=== PATIENT | male | born 1965 | race Native Hawaiian/Other Pacific Islander ===

== ENCOUNTER → 2020-06-29 11:07 | Outpatient (CLI) | payer OTHER, MEDICAID, SELFPAY ==
[2020-06-29 12:23] LABS: COVID19 -Nasal RAPID Negative (Negative)
== END ==
PROVIDERS: Visit Provider Physician Assistant
DX: Z11.59 Encounter for screening for other viral diseases (principal)
CPT/HCPCS: 87635

== ENCOUNTER → 2020-07-01 13:37 | Outpatient (CLI) | payer OTHER, MEDICAID, SELFPAY ==
--- NOTE | 2020-07-01 13:42 | DI.ECHO.S_ITS ---
[facility]---------+ [facility] +---------+ : : [address] : : : : [id number] : : : : Phone: [phone]+ Echocardiogram Report + + :Name: JASMIN HUTTON Study Date: 07/01/2020 Height: 68 in : :[facility] Weight: 242 lb : : Gender: Male BSA: 2.2 m2 : :: 1965 Age: 54 yrs BP: 147/84 mmHg: :Reason For Study: Tachycardia : : Performed By: Josseline Herrera : :Referring: BRODIE RICCI : + + Interpretation Summary 1) Normal left ventricular size and thickness with moderately reduced systolic function (EF 35-40%). 2) Normal right ventricular size and function. 3) No significant valvular abnormalities. 4) No prior Echo available for comparison. Procedure: A two-dimensional transthoracic echocardiogram with color flow and Doppler was performed. The study quality was technically adequate. There is no prior echocardiogram noted for this patient. The patient was in normal sinus rhythm during the exam. Left Ventricle: The left ventricle is normal in size and wall thickness. The ejection fraction is estimated to be 35-40%. Left ventricular systolic function is moderately reduced. Right Ventricle: The right ventricle is normal in size and function. Atria: The left atrial size is normal. Right atrial size is normal. There is no Doppler evidence for an interatrial shunt. Mitral Valve: The mitral valve leaflets are mildly calcified. There is mild mitral annular calcification. There is trace mitral regurgitation. Aortic Valve: The aortic valve is trileaflet. The aortic valve opens well. There is no aortic valve stenosis. No aortic regurgitation is present. Tricuspid Valve: The tricuspid valve is normal in structure and function. There is a trace or physiologic amount of tricuspid regurgitation. Pulmonary artery pressures cannot be estimated because of the lack of a measurable TR jet velocity. Pulmonic Valve: The pulmonic valve leaflets are thin and pliable; valve motion is normal. Great Vessels: The aortic root is normal size. The ascending aorta is normal in size. The pulmonary is not well visualized. The IVC is of normal diameter and collapses greater than 50% with a sniff. This suggests a low right atrial pressure of 3 mm Hg. Pericardium/ Pleura There is no pericardial effusion. There is an anterior echo-free space consistent with a fat pad. MMode/2D Measurements & Calculations LVIDd: 5.4 cm LVOT diam: 2.4 cm LVIDs: 3.8 cm Ao root diam: 3.1 cm FS: 30.6 % asc Aorta Diam: 3.2 cm EPSS: 1.1 cm Ao Arch Diam (Prox Trans): 3.0 cm IVSd: 0.86 cm LVPWd: 0.95 cm LV crane. diameter/BSA (cm/m^2): 2.4 LV sys. diameter/BSA (cm/m^2): 1.7 LA A2 area: 17.2 cm2 RA long axis: 4.6 cm LA A4 area: 21.6 cm2 RA area: 12.1 cm2 LA length (vol): 6.3 cm RA vol: 27.3 ml LA vol: 49.8 ml RA : 12.3 ml/m2 LA vol index: 22.5 ml/m2 IVC diam: 1.9 cm RVD1 (basal): 3.0 cm TAPSE: 2.1 cm Doppler Measurements & Calculations Ao V2 max: 148.8 cm/sec LVOT Max Gualberto: 80.2 cm/sec Ao V2 mean: 110.8 cm/sec LV V1 max P.6 mmHg Ao max P.9 mmHg LV V1 VTI: 14.9 cm Ao mean P.3 mmHg JUANI(I,D): 2.3 cm2 Ao V2 VTI: 28.9 cm JUANI(V,D): 2.4 cm2 sev ratio: 0.52 JUANI indexed to BSA (cm^2/m^2): 1.0 MV E max gualberto: 97.4 cm/sec PA V2 max: 111.7 cm/sec MV A max gualberto: 108.3 cm/sec PA V2 mean: 73.0 cm/sec MV E/A: 0.90 PA mean P.4 mmHg Med Peak E' Gualberto: 9.5 cm/sec PA Accel Time: 0.04 sec E/E' med: 10.3 Lat Peak E' Gualberto: 10.5 cm/sec E/E' lat: 9.2 E/e' average: 9.8 MV dec time: 0.20 sec SV(LVOT): 66.4 ml Reading Physician:05:08 PM
--- NOTE | 2020-07-01 19:40 | DI.NM.S_ITS ---
DATE OF SERVICE: 07/01/2020 PROCEDURE: Exercise stress test. INDICATIONS: Palpitation with underlying diabetes mellitus, hypertension and hyperlipidemia. CARDIAC STRESS: The patient underwent exercise stress test under the supervision of an attending staff. He walked on [place] protocol for 7 minutes 53 seconds and achieved 111 percent of target heart rate with normal blood pressure response. Baseline rhythm was sinus with sinus tachycardia with a heart rate of 207 beats per minute. Peak heart rate was up to 182 beats per minute. There was enhanced chronotropic response. The patient achieved 10.1 METs of workload and functional aerobic impairment positive 15 percent. No anginal symptoms. Thornton fatigue. During exercise, there were no convincing ischemic changes. There were no new significant arrhythmias, other than sinus tachycardia. CONCLUSION: Exercise stress test is negative for inducible ischemia. Baseline sinus tachycardia with enhanced chronotropic response. No obvious ischemic EKG changes. No new significant arrhythmias other than sinus tachycardia. Diminished exercise tolerance. Functional aerobic impairment positive 15 percent. Austen Pena - NIRAV/humberto/hannah doc#: [id number]/job#: [id number] dd: 07/01/2020 17:34:00 dt: 07/01/2020 18:40:00 DICTATING MD/COPIES TO: Courtney Plascencia MD COPIES MNE: NATALIE;
== END ==
PROVIDERS: Referring Provider Internal Medicine Cardiovascular Disease; Visit Provider Internal Medicine Cardiovascular Disease
DX: R00.0 Tachycardia, unspecified (principal); R00.2 Palpitations; E11.9 Type 2 diabetes mellitus without complications; I10 Essential (primary) hypertension; E78.5 Hyperlipidemia, unspecified
CPT/HCPCS: 93017; 93306

== ENCOUNTER → 2024-04-08 13:25 | Outpatient (CLI) | payer OTHER, MEDICAID, SELFPAY ==
--- NOTE | 2024-04-08 13:26 | DI.NM.S_ITS ---
PROCEDURE: NM EBONY PERF SPECT REST & STR Rest and exercise myocardial perfusion SPECT with gated imaging and ejection fraction RADIOPHARMACEUTICAL: 27.2 mCi Tc-99m sestamibi IV at rest and 25.0 mCi Tc-99m sestamibi IV at peak exercise. A [id number] was performed. INDICATIONS: SINUS TACHYCARDIA / FATIGUE TECHNIQUE: Radiopharmaceutical was injected at peak stress test, and also at rest. SPECT images were obtained. SPECT myocardial perfusion images were displayed in short axis, horizontal long axis, and vertical long axis views. Gated images were reviewed using [employer] software. COMPARISON: None. CARDIAC STRESS: A standard [place] treadmill exercise tolerance test was performed by the patient under the supervision of an attending staff. The patient exercised for 6 minutes and 01 seconds; 7.0 METS; functional aerobic impairment (GADIEL) is +23%. Hemodynamic data: There is normal blood pressure and heart rate response to exercise stress. Patient achieved 116% of maximum predicted heart rate at peak exercise. Maximum blood pressure 200/90. Symptoms: Patient denied chest pain during exercise however was observed to have severe shortness of breath. EKG: Rest ECG sinus rhythm. Exercise ECG sinus tachycardia, no ST segment changes or arrhythmia. FINDINGS: Raw data: There is good myocardial labeling by radiotracer. No significant motion artifacts. Left ventricle function: Gated images demonstrate normal left ventricle wall thickening. No segmental wall motion abnormality. No transient ischemic dilation; TID is 1.24 (normal less than 1.3). The left ventricle resting end-diastolic volume is 123 mL. Left ventricle stress ejection fraction is 53%; normal values are above 45%. Myocardial perfusion: There is a small size, mild intensity partially reversible apical lateral wall defect. IMPRESSION: Abnormal study. The small size, mild intensity partially reversible apical lateral wall defect could suggest prior small infarct with melanie-infarct ischemia. While the stress EF and wall motion is normal, there is note that the ejection fraction decreases from rest to stress. Slightly increased calculated LVEDV. No exercise-induced ECG changes. Hypertensive and accelerated heart rate response. Severe exercise-induced shortness of breath. Dictated by: Lian Moody D.O. on 04/09/2024 at 16:27 Approved by: Lian Moody D.O. on 04/09/2024 at 16:33
== END ==
LOC: NUCM 13:26
PROVIDERS: Referring Provider Nurse Practitioner Family; Visit Provider Nurse Practitioner Family
DX: R00.0 Tachycardia, unspecified (principal); R53.83 Other fatigue; R94.39 Abnormal result of other cardiovascular function study; R06.02 Shortness of breath; I10 Essential (primary) hypertension
CPT/HCPCS: 78452; 93017; A9502